=== PATIENT | male | born 1965 | race Caucasian/White ===

== ENCOUNTER 2017-04-05 11:30 | Inpatient (IN) | payer BC ==
[2017-04-05 12:39] VITALS: BMI 29.5
[2017-04-05] MEDS ORDERED: CEFAZOLIN 2 GM/D5W 2 GM/50 ML ML IVPB ONE ×2 (12:49→16:30)
[2017-04-05] MEDS ORDERED: TRANEXAMIC ACID 1000 MG/10 ML VIAL IVPUSH ONE (12:49)
[2017-04-05] MEDS: oxyCODONE HCL 10 MG SUSTAINED ACTING TABLET PO ONE (13:15)
[2017-04-05] MEDS ORDERED: DEXAMETHASONE SOD PHOSPHATE/PF 10 MG/ML SDV ONE (13:27)
[2017-04-05] MEDS ORDERED: ROPIVACAINE HCL 0.5% 30ML VIAL ONE (13:28)
[2017-04-05] MEDS ORDERED: MIDAZOLAM HCL 2 MG/2 ML SINGLE DOSE VIAL ONE ×2 (13:28→14:43)
[2017-04-05] MEDS ORDERED: PROPOFOL 20 ML ONE ×4 (13:29→14:43)
[2017-04-05] MEDS ORDERED: BUPIVACAINE LIPOSOME/PF (EXPAREL) 266 MG/20 ML VIAL ONE (13:32)
[2017-04-05] MEDS ORDERED: ceFAZolin SODIUM 1 GM VIAL ONE ×2 (15:28→18:10)
[2017-04-05] MEDS ORDERED: ONDANSETRON 4 MG/2 ML VIAL ONE (15:28)
[2017-04-05] MEDS ORDERED: DEXAMETHASONE SOD PHOSPHATE 4 MG/1 ML VIAL ONE (15:28)
[2017-04-05] MEDS ORDERED: VANCOMYCIN 1,000 MG VIAL (RESTRICTED TO ID ONLY) ONE (15:28)
[2017-04-05] MEDS ORDERED: TRANEXAMIC ACID - 1,000 MG in SODIUM CHLORIDE 100 ML IVPB ONE (16:30)
[2017-04-05] MEDS ORDERED: VANCOMYCIN 1,250 MG in DEXTROSE 5%-WATER - 250 ML IVPB ONE (16:30)
[2017-04-05] MEDS ORDERED: TRANEXAMIC ACID 1000 MG/10 ML VIAL ONE (18:11)
--- NOTE | 2017-04-05 18:25 | OP ---
Operative Note - Note: Operative Date: 04/05/17 Pre-Operative Diagnosis: Aseptic loosening tibial component of left TKA Operation: 1. Left tibial tubercle osteotomy. 2. Revision left TKA tibial prosthesis (removal and re-implantation) Findings: Intra-op frozen section: 0-2 WBC/HPF Implants: Arsh [employer]. Tibia - 5. Stem - [id number]. Poly - 20mm. 3 x cortical screws for tibial tubercle osteotomy fixation Surgeon: Bandar Kim [employer] Supervisor: Geraldo Kim (Co-Surgeon) Anesthesiologist/[employer]CH GENERAL MANAGER: Estrada Linton Anesthesia: Spinal Specimens Removed: Left TKA tibial component and polyethylene liner Estimated Blood Loss (mls): 0 (Tourniquet) Drains & Tubes with Location: 1 x deep HemoVac Fluid Volume Replaced (mls): 1,600 Operative Report Dictated: Yes
[2017-04-05] MEDS ORDERED: ALBUTEROL SO4 18 GM HFA INHALER IH PRN (18:27)
[2017-04-05] MEDS ORDERED: ALBUTEROL SO4 0.083% IH SOL 2.5 MG/3 ML VIAL.NEB. NEB PRN (18:27)
[2017-04-05] MEDS ORDERED: MAG HYDROX/AL HYDROX/SIMETH 30 ML UNIT-DOSE CUP PO PRN (18:28)
[2017-04-05] MEDS ORDERED: ONDANSETRON 4 MG/2 ML VIAL IVPUSH PRN ×2 (18:28→19:08)
[2017-04-05] MEDS ORDERED: MAGNESIUM HYDROX 2400MG/30ML ORAL SUSPENSION 30 ML CUP PO PRN ×2 (18:28→18:37)
[2017-04-05] MEDS ORDERED: LACTATED RINGERS SOLUTION 1,000 ML IV SCH (18:30)
--- NOTE | 2017-04-05 18:44 | PN ---
Progress Note (short form) - Note Progress Note: 48M s/p revision L TKA POD #0. -Pain control. -DVT PPx: Chemical - ASA EC 325mg PO BID, Mechanical - JESUS's, SCD's. -Incentive spirometry/pulmonary toilet. -PT/OR/Rehab, OOB. -Toe-touch weight bearing LLE. -Crutch training. -Will obtain Davis brace with AROM/PROM restriction to 0-60 degrees flexion. -(+) ice machine. -f/u TOV. -f/u drain output. -Diet as tolerated. -Mamie-op Abx. -Care per medical hospitalist team. -d/c planning.
[2017-04-05] MEDS ORDERED: oxyCODONE HCL 5 MG TABLET PO PRN (19:08)
[2017-04-05] MEDS ORDERED: PROMETHAZINE HCL 25 MG/1 ML VIAL IVPB PRN (19:08)
[2017-04-05] MEDS: ACETAMINOPHEN 325 MG TABLET (FP) PO SCH (19:45)
[2017-04-05] MEDS: ASPIRIN 325 MG TABLET PO SCH (21:52)
[2017-04-05] MEDS: GABAPENTIN 300 MG CAPSULE (FP) PO SCH (21:52)
[2017-04-05] MEDS: SENNOSIDES/DOCUSATE COMBO (SENNA PLUS) TABLET (UD) PO SCH (21:52)
[2017-04-05] MEDS: oxyCODONE HCL 10 MG SUSTAINED ACTING TABLET PO SCH (21:52)
[2017-04-05] MEDS: oxyCODONE HCL 5 MG TABLET PO PRN (23:00)
[2017-04-06] MEDS: ACETAMINOPHEN 325 MG TABLET (FP) PO SCH ×4 (01:21→19:53)
[2017-04-06] MEDS: CEFAZOLIN 2 GM/D5W 2 GM/50 ML ML IVPB SCH ×2 (01:22→10:51)
[2017-04-06] MEDS ORDERED: VANCOMYCIN 1,000 MG in DEXTROSE 5%-WATER - 250 ML IVPB ONE (03:00)
[2017-04-06] MEDS: oxyCODONE HCL 5 MG TABLET PO PRN ×3 (04:30→18:06)
[2017-04-06 08:17] LABS: HEMATOCRIT 43.6 % (35.4-49); HEMOGLOBIN 15.4 GM/dl (11.7-16.9); MCH 28.6 pg (25.7-33.7); MCHC 35.3 g/dl (32.0-35.9); MEAN CELL VOLUME 81.1 fl (80-96); MEAN PLT VOLUME 8.1 fl (7.5-11.1); PLATELET COUNT 291 K/MM3 (134-434); RBC 5.38 M/mm3 (4.00-5.60); RDW 13.2 % (11.9-15.9); WHITE BLOOD COUNT 12.7 K/mm3 (4.0-10.8)
[2017-04-06 08:26] LABS: ANION GAP 5 (8-16); BLOOD UREA NITROGEN 10 mg/dl (7-18); CALCIUM 8.6 mg/dl (8.4-10.2); CHLORIDE 103 mmol/L (98-107); CO2 25 mmol/L (22-28); CREATININE 0.9 mg/dl (0.6-1.3); GLUCOSE,RANDOM 124 mg/dl (74-106); POTASSIUM 4.5 mmol/L (3.5-5.1); SODIUM 133 mmol/L (136-145)
--- NOTE | 2017-04-06 09:36 | HP ---
HISTORY OF PRESENT ILLNESS Patient is 51 y/o male with a past medical history of osteoarthritis, asthma and BPH. patient was admitted for elective Left tibial tubercle osteotomy, Revision left TKA tibial prosthesis (removal and re-implantation of hardware) by Dr Kim, 04/05/17 PCP: Dr Brown Recent travel: none Family History:non contributory Social History: resides at home with Smoking:none Alcohol:social Drugs: none REVIEW OF SYSTEMS CONSTITUTIONAL: Absent: fever, chills, diaphoresis, generalized weakness, malaise, loss of appetite, weight change HEENT: Absent: rhinorrhea, nasal congestion, throat pain, throat swelling, difficulty swallowing, mouth swelling, ear pain, eye pain, visual changes CARDIOVASCULAR: Absent: chest pain, syncope, palpitations, irregular heart rate, lightheadedness , peripheral edema RESPIRATORY: Absent: cough, shortness of breath, dyspnea with exertion, orthopnea, wheezing, stridor, hemoptysis GASTROINTESTINAL: Absent: abdominal pain, abdominal distension, nausea, vomiting, diarrhea, constipation, melena, hematochezia GENITOURINARY: Absent: dysuria, frequency, urgency, hesitancy, hematuria, flank pain, genital pain MUSCULOSKELETAL: Present: left knee pain Absent: myalgia, arthralgia, joint swelling, back pain, neck pain SKIN: Absent: rash, itching, pallor HEMATOLOGIC/IMMUNOLOGIC: Absent: easy bleeding, easy bruising, lymphadenopathy, frequent infections ENDOCRINE: Absent: unexplained weight gain, unexplained weight loss, heat intolerance, cold intolerance NEUROLOGIC: Absent: headache, focal weakness or paresthesias, dizziness, unsteady gait, seizure, mental status changes, bladder or bowel incontinence PSYCHIATRIC: Absent: anxiety, depression, suicidal or homicidal ideation, hallucinations. PHYSICAL EXAMINATION: Vital Signs Temperature 98.9 F 04/06/17 06:00 Pulse Rate 101 H 04/06/17 06:00 Respiratory Rate 18 04/06/17 06:00 Blood Pressure 149/82 04/06/17 06:00 O2 Sat by Pulse Oximetry (%) 96 04/06/17 06:00 GENERAL: Awake, alert, and fully oriented, in no acute distress. HEAD: Normal with no signs of trauma. EYES: Pupils equal, round and reactive to light, extraocular movements intact, sclera anicteric, conjunctiva clear. No lid lag. EARS, NOSE, THROAT: Ears normal, nares patent, oropharynx clear without exudates. Moist mucous membranes. NECK: Normal range of motion, supple without lymphadenopathy, JVD, or masses. LUNGS: Breath sounds equal, clear to auscultation bilaterally. No wheezes, and no crackles. No accessory muscle use. HEART: Regular rate and rhythm, normal S1 and S2 without murmur, rub or gallop. ABDOMEN: Soft, nontender, not distended, normoactive bowel sounds, no guarding, no rebound, no masses. No hepatomegaly or splenomegaly. MUSCULOSKELETAL: Normal range of motion at all joints. No bony deformities or tenderness. No CVA tenderness. UPPER EXTREMITIES: 2+ pulses, warm, well-perfused. No cyanosis. No clubbing. No peripheral edema. LOWER EXTREMITIES: 2+ pulses, warm, well-perfused. No calf tenderness. No peripheral edema. left lower extremity: Rebecca brace, ice machine, hemovac noted with serrous sangenous drainage, scd/htad, less elena 3 second capillary refill, +3 pedal pulse NEUROLOGICAL: Cranial nerves II-XII intact. Normal speech. Normal gait. PSYCHIATRIC: Cooperative. Good eye contact. Appropriate mood and affect. SKIN: Warm, dry, normal turgor, no rashes or lesions noted, normal capillary refill. CBC,CMP WBC 12.7 K/mm3 (4.0-10.8) H 04/06/17 07:45 RBC 5.38 M/mm3 (4.00-5.60) 04/06/17 07:45 Hgb 15.4 GM/dl (11.7-16.9) 04/06/17 07:45 Hct 43.6 % (35.4-49) 04/06/17 07:45 MCV 81.1 fl (80-96) 04/06/17 07:45 MCH 28.6 pg (25.7-33.7) 04/06/17 07:45 MCHC 35.3 g/dl (32.0-35.9) 04/06/17 07:45 RDW 13.2 % (11.9-15.9) 04/06/17 07:45 Plt Count 291 K/MM3 (134-434) 04/06/17 07:45 MPV 8.1 fl (7.5-11.1) 04/06/17 07:45 Sodium 133 mmol/L (136-145) L 04/06/17 07:45 Potassium 4.5 mmol/L (3.5-5.1) 04/06/17 07:45 Chloride 103 mmol/L (98-107) 04/06/17 07:45 Carbon Dioxide 25 mmol/L (22-28) 04/06/17 07:45 Anion Gap 5 (8-16) L 04/06/17 07:45 BUN 10 mg/dl (7-18) 04/06/17 07:45 Creatinine 0.9 mg/dl (0.6-1.3) 04/06/17 07:45 Random Glucose 124 mg/dl (74-106) H 04/06/17 07:45 Calcium 8.6 mg/dl (8.4-10.2) 04/06/17 07:45 Active Medications Generic Name Dose Route Start Last Admin Trade Name Freq PRN Reason Stop Dose Admin Acetaminophen 650 mg 04/05/17 19:15 04/06/17 08:30 Tylenol - PO 04/08/17 19:14 650 mg Q6H JEANETH Administration Al Hydroxide/Mg Hydroxide 30 ml 04/05/17 18:28 Mylanta Oral Suspension - PO Q4H PRN DYSPEPSIA Albuterol Sulfate 1 amp 04/05/17 18:27 Ventolin 0.083% Nebulizer Soln - NEB Q6H PRN ASTHMA Albuterol Sulfate 1 - 2 puff 04/05/17 18:27 Ventolin Hfa Inhaler - IH TID PRN ASTHMA Aspirin 325 mg 04/05/17 22:00 04/05/17 21:52 Asa - PO 325 mg BID JEANETH Administration Fentanyl 50 mcg 04/05/17 19:08 04/05/17 19:45 Sublimaze Injection - IVPUSH 50 mcg [id number] PRN Administration PAIN-PACU ORDER X 4 DOSES ONLY Gabapentin 300 mg 04/05/17 22:00 04/05/17 21:52 Neurontin - PO 300 mg BID JEANETH Administration Cefazolin Sodium/Dextrose 2 gm in 50 mls @ 100 mls/hr 04/06/17 02:00 01:22 Ancef 2 Gm Premixed Ivpb - IVPB 04/06/17 10:29 100 mls/hr Q8H-IV JEANETH Administration Magnesium Hydroxide 30 ml 04/05/17 18:37 Milk Of Magnesia - PO Q24H PRN CONSTIPATION Ondansetron HCl 4 mg 04/05/17 18:28 Zofran Injection IVPUSH Q6H PRN NAUSEA Ondansetron HCl 4 mg 04/05/17 19:08 04/05/17 19:45 Zofran Injection IVPUSH 4 mg Q6H PRN Administration NAUSEA AND/OR VOMITING Oxycodone HCl 5 mg 04/05/17 19:08 Roxicodone - PO Q3H PRN PAIN LEVEL 1-5 Oxycodone HCl 10 mg 04/05/17 19:08 04/06/17 08:29 Roxicodone - PO 10 mg Q3H PRN Administration PAIN LEVEL 6-10 Oxycodone HCl 10 mg 04/05/17 22:00 04/05/17 21:52 Oxycontin - PO 04/08/17 19:09 10 mg BID JEANETH Administration Pantoprazole Sodium 40 mg 04/06/17 10:00 Protonix - PO DAILY JEANETH Promethazine HCl 12.5 mg 04/05/17 19:08 Phenergan Injection - IVPB Q6H PRN NAUSEA-FOR RESCUE AFTER 15 MIN Senna/Docusate Sodium 1 tablet 04/05/17 22:00 04/05/17 21:52 Pericolace - PO 1 tablet BID JEANETH Administration ASSESSMENT/PLAN: 1) MS s/p Left tibial tubercle osteotomy, Revision left TKA tibial prosthesis ( removal and re-implantation of hardware), pod #1 - physical therapy as per Dr Kim - Rebecca almazan with AROM/PROM restriction to 0-60 degrees flexion. - prn pain medication 2) pulm asthma - no acute excerbation at this time, continue albuterol prn f/e/n - regular diet - replete lytes prn ppx - asa as per ortho - protonix dispo: requires inpatient admission Visit type - Case Type Case Type: Scheduled Admission - Emergency Emergency Visit: No - New patient This patient is new to me today: Yes Date on this admission: 04/06/17 - Critical Care Critical Care patient: No
--- NOTE | 2017-04-06 10:37 | PN ---
Progress Note (short form) - Note Progress Note: 51M POD1 s/p revision of left knee arthroplasty under spinal anesthetic with peripheral nerve blocks for post operative pain control. Pt states that pain is well controlled, reports no anesthetic complications. AVSS. Motor function intact in bilateral lower extremities. Mild ipsilateral numbness improving as blocks wear off. Continue current regimen.
[2017-04-06] MEDS: ASPIRIN 325 MG TABLET PO SCH ×2 (10:48→21:31)
[2017-04-06] MEDS: GABAPENTIN 300 MG CAPSULE (FP) PO SCH ×2 (10:48→21:31)
[2017-04-06] MEDS: PANTOPRAZOLE 40 MG TABLET (FP) PO SCH (10:48)
[2017-04-06] MEDS: oxyCODONE HCL 10 MG SUSTAINED ACTING TABLET PO SCH ×2 (10:48→21:32)
[2017-04-06] MEDS: SENNOSIDES/DOCUSATE COMBO (SENNA PLUS) TABLET (UD) PO SCH ×2 (10:48→21:32)
[2017-04-06] MEDS: oxyCODONE HCL 10 MG SUSTAINED ACTING TABLET PO ONE (12:04)
--- NOTE | 2017-04-06 13:00 | OP ---
DATE OF OPERATION: 04/05/2017 SURGEON: Bandar Kim MD CO-SURGEON: Geraldo Kim MD PREOPERATIVE DIAGNOSIS: Loosening of left total knee arthroplasty. POSTOPERATIVE DIAGNOSIS: Loosening of left total knee arthroplasty. OPERATION PERFORMED: 1. Explant left tibia. 2. Tibial tubercle osteotomy. 3. Extensive synovectomy and biopsy of tissues. 4. Revision left total knee arthroplasty. 5. Lateral release. ANESTHESIA: Spinal epidural with conscious sedation. ANTIBIOTICS GIVEN: Kefzol 2 g and vancomycin 1 g and Kefzol 1 g given at the time of release of the tourniquet . TOURNIQUET TIME: 2 hours 30 minutes DESCRIPTION OF PROCEDURE: The patient was correctly identified and brought to the operating room. His knee was swollen. A time-out was called. Imaging was available for intraoperative evaluation. The left lower extremity was prepped free and draped, with Betadine scrub solution, wiped off with alcohol, and DuraPrep applied. The original midline incision was opened but extended proximally and distally. The incision was made with the quadriceps tendon split longitudinally. A medial parapatellar incision was made around the tibia. It was impossible to capsize the patella and gain access. Instead of cutting into the muscles proximally, we elected to do a tibial tubercle osteotomy. This gained easy access to the bone bed. Diffuse brown hemosiderin-like tissue diffusely noted in the actual tissue bed. The tibial component appeared loose. I say that based on the fact that the entry of the oscillating saw and the undersurface of the baseplate to remove and explant the tibial component was relatively easy. The area of the stem was solidly inserted. The femoral component was completely solidly inserted. Multiple biopsies were taken. They revealed 1 to 2 polymorphs per high power field. No signs of any infection were noted. No purulence or mucinous slime noted. The tibial component was removed without any difficulty. The bone bridge was then prepared using the appropriate jig system, based on extramedullary alignment. Cementing the tibial component. Measured a size 5 tibia with an 11 x 100-mm stem applied and a 20-mm polyethylene liner inserted, which gave good stability and a full range of motion. A lateral release was necessary in order to facilitate patellar tracking. The procedure was difficult to remove the cement. It was a difficult decision whether to remove the entire femoral component and patella and do a 2-stage revision arthroplasty. But there was no sign of infection both clinically at op as well as with histopathology evaluation. Multiple specimens were taken for culture and sensitivity as well. It was elected to go ahead with a 1-stage procedure after a full extensive debridement of the tissues and washout appropriately. The tibial tubercle was fixed back in position with 3 oblique screws. This was using lag at that time for fixation, lateral release in position, and the tissues were closed with fascia 1 Vicryl, subcutaneous 1 and 2-0 Vicryl, and skin syeda. The actual range of movement on the table was 0 to 130 degrees, and the ligament stability was completely normal. After release of the tourniquet, the toes were pink and viable and healthy. MD FÁTIMA [id number] MTDD
[2017-04-07] MEDS: ACETAMINOPHEN 325 MG TABLET (FP) PO SCH ×2 (00:56→06:27)
[2017-04-07] MEDS: oxyCODONE HCL 5 MG TABLET PO PRN ×2 (03:03→10:11)
[2017-04-07 09:11] LABS: HEMATOCRIT 40.2 % (35.4-49); HEMOGLOBIN 14.1 GM/dl (11.7-16.9); MCH 28.7 pg (25.7-33.7); MEAN PLT VOLUME 8.4 fl (7.5-11.1); PLATELET COUNT 229 K/MM3 (134-434); RDW 13.6 % (11.9-15.9); WHITE BLOOD COUNT 8.9 K/mm3 (4.0-10.8)
[2017-04-07] MEDS: SENNOSIDES/DOCUSATE COMBO (SENNA PLUS) TABLET (UD) PO SCH (10:11)
[2017-04-07] MEDS: oxyCODONE HCL 10 MG SUSTAINED ACTING TABLET PO SCH (10:11)
[2017-04-07] MEDS: GABAPENTIN 300 MG CAPSULE (FP) PO SCH (10:11)
[2017-04-07] MEDS: ASPIRIN 325 MG TABLET PO SCH (10:11)
[2017-04-07] MEDS: PANTOPRAZOLE 40 MG TABLET (FP) PO SCH (10:11)
[2017-04-07 10:53] VITALS: BP 138/85; PULSE 93; TEMP 98.3
--- NOTE | 2017-04-07 11:21 | DS ---
Physical Exam: SUBJECTIVE: Patient seen and examined, patient reports feeling well, reports pain to the left lower extremity upon movement, patient denies any paresthesia to the extremity. OBJECTIVE:Patient is 51 y/o male with a past medical history of osteoarthritis, asthma and BPH. patient was admitted for elective Left tibial tubercle osteotomy, Revision left TKA tibial prosthesis (removal and re-implantation of hardware) by Dr Kim, 04/05/17 Vital Signs Temperature 98.3 F 04/07/17 10:00 Pulse Rate 93 H 04/07/17 10:00 Respiratory Rate 18 04/07/17 10:00 Blood Pressure 138/85 04/07/17 10:00 O2 Sat by Pulse Oximetry (%) 97 04/07/17 09:00 PHYSICAL EXAM GENERAL: The patient is awake, alert, and fully oriented, in no acute distress. HEAD: Normal with no signs of trauma. EYES: PERRL, extraocular movements intact, sclera anicteric, conjunctiva clear. ENT: Ears normal, nares patent, oropharynx clear without exudates, moist mucous membranes. NECK: Trachea midline, full range of motion, supple. LUNGS: Breath sounds equal, clear to auscultation bilaterally, no wheezes, no crackles, no accessory muscle use. HEART: Regular rate and rhythm, S1, S2 without murmur, rub or gallop. ABDOMEN: Soft, nontender, nondistended, normoactive bowel sounds, no guarding, no rebound, no hepatosplenomegaly, no masses. EXTREMITIES: 2+ pulses, warm, well-perfused, no edema. LEFT LOWER EXTREMITY: aguacel dressing CDI, hemovac dressing removed, no drainage noted, no erythema no induration is noted. NEUROLOGICAL: Cranial nerves II through XII grossly intact. Normal speech, gait not observed. PSYCH: Normal mood, normal affect. SKIN: Warm, dry, normal turgor, no rashes or lesions noted. LABS CBC,CMP WBC 8.9 K/mm3 (4.0-10.8) 04/07/17 08:00 RBC 4.90 M/mm3 (4.00-5.60) 04/07/17 08:00 Hgb 14.1 GM/dl (11.7-16.9) 04/07/17 08:00 Hct 40.2 % (35.4-49) 04/07/17 08:00 MCV 82.0 fl (80-96) 04/07/17 08:00 MCH 28.7 pg (25.7-33.7) 04/07/17 08:00 MCHC 35.0 g/dl (32.0-35.9) 04/07/17 08:00 RDW 13.6 % (11.9-15.9) 04/07/17 08:00 Plt Count 229 K/MM3 (134-434) D 04/07/17 08:00 MPV 8.4 fl (7.5-11.1) 04/07/17 08:00 Sodium 133 mmol/L (136-145) L 04/06/17 07:45 Potassium 4.5 mmol/L (3.5-5.1) 04/06/17 07:45 Chloride 103 mmol/L (98-107) 04/06/17 07:45 Carbon Dioxide 25 mmol/L (22-28) 04/06/17 07:45 Anion Gap 5 (8-16) L 04/06/17 07:45 BUN 10 mg/dl (7-18) 04/06/17 07:45 Creatinine 0.9 mg/dl (0.6-1.3) 02 07:45 Random Glucose 124 mg/dl (74-106) H 04/06/17 07:45 Calcium 8.6 mg/dl (8.4-10.2) 04/06/17 07:45 HOSPITAL COURSE: The patient was admitted to the Med-Surg Unit after an elective Left tibial tubercle osteotomy, Revision left TKA tibial prosthesis (removal and re- implantation of hardware). On post operative day 1, the patient ambulated the hallways with assistance. Narcotic and non-narcotic pain management control was achieved with an oral and IV approach. POD #2 the surgical drain was removed fully intact and without incident. Mamie-operative IV ABX were administered. DVT prophylaxis was achieved with SCDs and early ambulation. The patient ambulated with Physical Therapy and will receive physical therapy services at home upon discharge. Narcotic scripts and or muscle relaxants were checked with [place] [employer] prior to escibe. The discharge instructions and an oral pain management plan were reviewed with the patient. All questions answered. Above plan discussed with Dr. Kim and agreed. Date of Admission:04/05/17 Date of Discharge: 04/07/17 Minutes to complete discharge: 45
--- NOTE | 2017-04-07 12:48 | PN ---
Progress Note (short form) - Note Progress Note: 48M doing well s/p revision L TKA POD #2. Pain well controlled. No acute events overnight. Pt. denies overnight history of chest pain, shortness of breath, nausea, vomiting, chills, and sweats. (+) Voiding; (?) Flatus; (?) BM. All labs and vital signs reviewed. PE: AAO x 3, NAD. LLE: Dressing C/D/I. NV assessment at baseline. A/P: 48M doing well s/p revision L TKA POD #2. -Pain control. -DVT PPx: Chemical - ASA EC 81mg PO BID x 6 weeks, Mechanical - JESUS's, SCD's. -Incentive spirometry/pulmonary toilet. -PT/OR/Rehab, OOB. -Toe-touch weight bearing LLE. -Crutch training. -Newberry brace with AROM/PROM restriction to 0-60 degrees flexion. -(+) ice machine. -Diet as tolerated. -Care per medical hospitalist team. -d/c planning.
== END 2017-04-07 12:52 | disposition home health service (06) | DRG 468 ==
LOC: FM/S 11:39
PROVIDERS: ADMIT Orthopaedic Surgery Orthopaedic Surgery of the Spine; ATTEND Orthopaedic Surgery Orthopaedic Surgery of the Spine
PROC: 0SRD0J9 Replacement of Left Knee Joint with Synthetic Substitute, Cemented, Open Approach (ICD-10-PCS; 2017-04-05)
PROC: 0SBD0ZX Excision of Left Knee Joint, Open Approach, Diagnostic (ICD-10-PCS; 2017-04-05)
PROC: 0SPD0JZ Removal of Synthetic Substitute from Left Knee Joint, Open Approach (ICD-10-PCS; principal; 2017-04-05 16:13)
DX: T84.033A Mechanical loosening of internal left knee prosthetic joint, initial encounter (principal); Y83.8 Other surgical procedures as the cause of abnormal reaction of the patient, or of later complication, without mention of misadventure at the time of the procedure; Y92.89 Other specified places as the place of occurrence of the external cause; J45.909 Unspecified asthma, uncomplicated; N40.0 Benign prostatic hyperplasia without lower urinary tract symptoms; M17.10 Unilateral primary osteoarthritis, unspecified knee
CPT/HCPCS: 36415; 73560-TC-LT-FY; 80048; 85027; 87070; 87075; 87077; 87102; 87116; 87205; 87206; 87210; 94010; 94760; 97116-GP; 97162-GP